=== PATIENT | male | born 1970 | race Caucasian/White ===

== ENCOUNTER 2016-12-31 23:53 | Emergency (ER) | payer BC | END 2017-01-01 01:20 | disposition home or self-care (01) | LOC: ER 23:53 | DX: L50.0 Allergic urticaria (principal); E78.5 Hyperlipidemia, unspecified; K21.9 Gastro-esophageal reflux disease without esophagitis; Z79.899 Other long term (current) drug therapy | CPT/HCPCS: 96374; 96375 ==